=== PATIENT | female | born 1975 | race Caucasian/White ===

== ENCOUNTER 2018-02-13 08:17 | Emergency (ER) | payer BC ==
--- NOTE | 2018-02-13 08:42 | EDPHY ---
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 A few nonspecific hyperintense T2/FLAIR signal abnormalities in the white matter of bilateral cerebral hemispheres. Differential diagnosis includes mild microvascular ischemic gliosis, migraine-related sequela, atypical demyelinating disease, or postinfectious/post inflammatory sequela. 2. Low-lying cerebellar tonsils 5 mm below the foramen magnum. 3. No acute infarct, acute hemorrhage, hydrocephalus, or mass effect. Findings and recommendations discussed with Emergency Department physician, Catalino Ott MD at 1014 hours, 02/13/2018. Final report concurs with initial preliminary interpretation. Imaging: Discussed imaging studies w/ call center professional Radiologist, I viewed and interpreted images myself ED Course/Re-evaluation: CHIEF COMPLAINT: Left arm pain, lightheaded HISTORY OF PRESENT ILLNESS: The patient is a 42 y/o female with a history of atrial fibrillation and bradycardia complaining of intermittent episodes of left arm pain and lightheadedness. She is followed by Dr. Parker for intermittent atrial fibrillation , but is not anticoagulated. Several weeks ago, the patient had an episode of dizziness and acute left arm pain which concerned her. Around 2 weeks ago the symptoms returned while driving her kids to the pool. She became confused and was unsure where the pool was during this episode; her motor function was normal. Several days ago she had another episode of confusion associated with an odd sensation to the right side of her face. Today she had confusion, pain in her left arm, and abnormal sensation in face. She was unsure if these symptoms were due to hypertension, so she decided to present to the emergency department. Denies headache, chest pain, shortness of breath, abdominal pain, urinary or bowel complaints, numbness, fever. REVIEW OF SYSTEMS: A 10 point review of systems was performed and is negative with the exception of the elements mentioned in the history of present illness. PHYSICAL EXAM: HR, BP, O2 Sat, RR. Temp noted General Appearance: Alert, well hydrated, appropriate, and non-toxic appearing. Head: Atraumatic without scalp tenderness or obvious injury Eyes: Pupils equal, round, reactive to light and accommodation, EOMI, no trauma , no injection. Ears: Clear bilaterally, no perforation, normal landmarks Nose: Atraumatic, no rhinorrhea, clear. Throat: There is no erythema or exudates, no lesions, normal tonsils, mucus membranes moist. Neck: Supple, nontender, no lymphadenopathy. Respiratory: No retractions, no distress, no wheezes, and no accessory muscle use. Lungs are clear to auscultation bilaterally. Cardiovascular: Mild bradycardia, no murmurs, rubs, or gallops. Bilateral carotid, radial, dorsalis pedis, and posterior tibial pulses intact. Good capillary refill all extremities. Gastrointestinal: Abdomen is soft, nontender, non-distended, no masses, no rebound, no guarding, no peritoneal signs. Musculoskeletal: Normal active ROM of all extremities, atraumatic. Neurological: Alert, appropriate, and interactive. The patient has normal DTRs and non-focal cranial nerves, motor, sensory, and cerebellar exam. Skin: No rashes, good turgor, no nodules on palpation. Past medical history: Atrial fibrillation, bradycardia Past surgical history: Thyroidectomy Family history: Denies Social history: , lives in [place], employed DIAGNOSTICS/PROCEDURES/CRITICAL CARE TIME: EKG: The 12 lead EKG was interpreted by myself as sinus bradycardia with a rate of 49. See hard copy and/or "tracemaster" electronic copy for interpretation. Brain MRI: Normal DIFFERENTIAL DIAGNOSIS: The differential diagnosis for the patient's lightheadedness included but was not limited to peripheral and central causes of vertigo, orthostatic causes including dehydration, cardiogenic and neurogenic causes, and blood loss. MEDICAL DECISION MAKING: The patient is a 42 y/o female with a history of atrial fibrillation and bradycardia presenting with intermittent episodes of left arm pain and lightheadedness. The patient has a normal physical exam including a normal neurological exam. She does have a small stroke risk due to her prior history of atrial fibrillation. Labs, EKG, and brain MRI ordered. 0852: I interpreted patient's EKG as sinus bradycardia. 0915: Patient's troponin is negative. 1015: I spoke with Dr. Chester, radiologist, who reports that the patient has a normal brain MRI. 1031: Reassessed patient and discussed normal laboratory and imaging studies. I have advised her to follow up with a neurologist. Return precautions provided; patient is comfortable with this plan. - Data Points Laboratory Results: Laboratory Results 02/13/18 08:57 02/13/18 08:57 02/13/18 02/13/18 02/13/18 09:01 08:57 08:57 WBC 6.39 10^3/uL 10^3/uL (3.80-9.50) RBC 4.49 10^6/uL 10^6/uL (4.18-5.33) Hgb 13.7 g/dL g/dL (12.6-16.3) Hct 40.5 % % (38.0-47.0) MCV 90.2 fL fL (81.5-99.8) MCH 30.5 pg pg (27.9-34.1) MCHC 33.8 g/dL g/dL (32.4-36.7) RDW 12.1 % % (11.5-15.2) Plt Count 252 10^3/uL 10^3/uL (150-400) MPV 10.1 fL fL (8.7-11.7) Neut % (Auto) 49.5 % % (39.3-74.2) Lymph % (Auto) 38.3 % % (15.0-45.0) [place] % (Auto) 7.4 % % (4.5-13.0) Eos % (Auto) 3.6 % % (0.6-7.6) Baso % (Auto) 0.9 % % (0.3-1.7) Nucleat RBC Rel Count 0.0 % % (0.0-0.2) Absolute Neuts (auto) 3.16 10^3/uL 10^3/uL (1.70-6.50) Absolute Lymphs (auto) 2.45 10^3/uL 10^3/uL (1.00-3.00) Absolute Monos (auto) 0.47 10^3/uL 10^3/uL (0.30-0.80) Absolute Eos (auto) 0.23 10^3/uL 10^3/uL (0.03-0.40) Absolute Basos (auto) 0.06 10^3/uL 10^3/uL (0.02-0.10) Absolute Nucleated RBC 0.00 10^3/uL 10^3/uL (0-0.01) Immature Gran % 0.3 % % (0.0-1.1) Immature Gran # 0.02 10^3/uL 10^3/uL (0.00-0.10) Sodium 143 mEq/L mEq/L (135-145) Potassium 3.9 mEq/L mEq/L (3.3-5.0) Chloride 102 mEq/L mEq/L (97-110) Carbon Dioxide 26 mEq/l mEq/l (22-31) Anion Gap 15 mEq/L mEq/L (8-16) BUN 15 mg/dL mg/dL (7-23) Creatinine 0.8 mg/dL mg/dL (0.6-1.0) Estimated GFR > 60 Glucose 89 mg/dL mg/dL (70-100) Calcium 9.5 mg/dL mg/dL (8.5-10.4) POC Troponin I 0.00 ng/mL ng/mL (0.00-0.08) Point of Care Test Results: Chemistry 02/13/18 09:01 POC Troponin I 0.00 ng/mL ng/mL (0.00-0.08) Departure - Departure Disposition: Home, Routine, Self-Care Clinical Impression: Lightheaded, Left arm pain Condition: Good Instructions: Lightheadedness (ED) Additional Instructions: 1. Follow-up with a neurologist in the next week, you have been referred to Dr. Iglesias. 2. Follow-up with your primary care physician within 72 hours. 3. Return to the emergency department immediately for recurrence of headache, nausea, vomiting, numbness, weakness, neck pain, fever or other concerns. 4. Use Tylenol and/or ibuprofen as directed. Referrals: Nikole Dwyer MD [Primary Care Provider] - As per Instructions Ridge Iglesias DO [Doctor of Osteopathy] - As per Instructions Report Scribed for: Catalino Ott Report Scribed by: Lauren Womack Date of Report: 02/13/18 Time of Report: 09:23
--- NOTE | 2018-02-13 08:53 | CPEKG ---
Heart Rate: 49 RR Interval: 1224 P-R Interval: 172 QRSD Interval: 100 QT Interval: 440 QTC Interval: 398 P Warren: 32 QRS Warren: 3 T Wave Warren: 20 EKG Severity - OTHERWISE NORMAL ECG - EKG Impression: SINUS BRADYCARDIA Electronically Signed By: Catalino Ott 13-Feb-2018 14:57:15
[2018-02-13 09:11] LABS: PLATELET COUNT 252 10^3/uL (150-400)
[2018-02-13 10:58] VITALS: BP 108/62
== END 2018-02-13 11:00 | disposition home or self-care (01) ==
DX: R42 Dizziness and giddiness (principal); M79.602 Pain in left arm
CPT/HCPCS: 84484-PO

== ENCOUNTER → 2018-12-27 | Outpatient (CLI) | payer BC ==
[~2018-12-27] MED LIST: ACETAMINOPHEN 325 MG TAB PO ONE
[2018-12-27 10:32] VITALS: BP 110/65
== END ==
LOC: F1NOP 10:08
PROVIDERS: ATTEND Internal Medicine Hematology & Oncology
PROC: 30243N1 Transfusion of Nonautologous Red Blood Cells into Central Vein, Percutaneous Approach (ICD-10-PCS; principal; 2018-12-27)
DX: D50.9 Iron deficiency anemia, unspecified (principal)
CPT/HCPCS: 36430; P9016; P9021; J1200